=== PATIENT | female | born 1945 | race Caucasian/White ===

== ENCOUNTER 2023-10-11 09:55 | Day surgery (SDC) | payer MEDICARE, OTHER ==
[2023-09-23 15:01] VITALS: BP 149/63
[~2023-10-11] VITALS: Ht 165.1 cm; Wt 87.7 kg
--- NOTE | ~2023-10-11 | OR ---
[facility] [address] [place], [place] [address] Draft DATE OF OPERATION: 10/11/2023 SURGEON: Meagan Pardo MD PREOPERATIVE DIAGNOSIS: Postmenopausal bleeding, cervical stenosis. POSTOPERATIVE DIAGNOSIS: Postmenopausal bleeding, cervical stenosis. PROCEDURE: Hysteroscopy, dilation and curettage. ANESTHESIA: General LMA. ESTIMATED BLOOD LOSS: Minimal. DRAINS: None. 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 Ultrasound showed some fluid in the cavity as well as some thickening. The endometrial biopsy could not be performed in the office secondary to cervical stenosis. At the time of surgery, there was mucus identified on dilating the cervix. The cavity itself appeared pretty atrophic with minimal tissue. DESCRIPTION OF PROCEDURE: The patient was prepped and draped in the dorsal lithotomy position. A weighted speculum was placed. The anterior lip of the cervix was visualized and grasped with a single-tooth tenaculum. The small dilators were used and the cervix was then dilated with a moderate amount of mucus seen. The endocervical canal was then dilated to a #8 dilator. The MyoSure device was placed and the cavity evaluated. It did appear to be atrophic. The MyoSure device was removed and a D and C was done using a small curette with a small amount of tissue found. The tenaculum and speculum removed. There was no evidence of any ongoing bleeding. The patient tolerated well and was taken to the recovery room in good condition. Sponge and needle counts were correct. PATIENT NAME: GALINA BASILIO OPERATIVE REPORT DATE OF : 49 REPORT #: [id number] PHYSICIAN: MEAGAN PARDO MD PCP: OTHER PCP REPORT IS CONFIDENTIAL AND NOT TO BE RELEASED WITHOUT AUTHORIZATION [address] [address] Draft MD CECILE Salas/RADHA /[id number] Copies: ~ PATIENT NAME: GALINA BASILIO OPERATIVE REPORT DATE OF : 49 REPORT #: [id number] PHYSICIAN: MEAGAN PARDO MD PCP: OTHER PCP REPORT IS CONFIDENTIAL AND NOT TO BE RELEASED WITHOUT AUTHORIZATION
[~2023-10-11 09:55] MED LIST: ADVIL200 MG; ALTOPREV40 MG PO; BAYER CHEWABLE81 MG PO; BRIMONIDINE TART5 ML; CALCIUM 250+D1 EACH PO; CLOBETASOL PROP15 G1 TOP; FAMOTIDINE20 MG PO; GARLIC1 EAC1 PO; GLUCOPHAGE500 MG PO; IRON 100 PLUS1 EACH PO; ISOSORBIDE DINI30 MG PO; LYSINE1000 MG PO; MELALEUCA10 ML PO; MYRBETRIQ25 MG PO; NITROFURANTOIN50 MG PO; NITROGLYCERIN0.4 MG SL; PANTOPRAZOLE SO40 MG PO; PERPHENAZINE2 MG PO; PRINIVIL10 MG PO; RENA-VITE RX T1 EACH; SERTRALINE HCL100 MG PO; TYLENOL EXTRA500 M2 PO; VITAMIN E OIL-V52 M2 TOP
[2023-10-11 10:12] VITALS: BP 143/55
[2023-10-11] MEDS ORDERED: REPATHA PU420 MG/3.5 SUB-Q (10:24)
--- NOTE | 2023-10-11 13:08 | NUR ---
10/11/23 [id number] Shantelle Reynolds 1247- PT ARRIVES TO PACU, SEMI BACK POSITION. LR INFUSING TO RFA IV, O2 AT 8L PER MASK. ALL MONITORS IN PLACE. URBAN PAD WITH NO DRAINAGE IN PLACE. ABD SOFT, NON DISTENDED. PT NON REACTIVE TO STIMULUS AT THIS TIME. 1251- PT REACTIVE TO VERABL STIMULI. OPENS EYES AND LOOKING AROUND. PT REORIENTED TO TIME AND PLACE AND PROCEDURE COMPLETE, PT STATES "YOU ARE JOKING". DENIES PAIN AND NAUSEA. O2 REMAINS IN PLACE AT THIS TIME. 1253- SATS REMAIN 100% ON 8L PER MASK, MOVED TO ROOM AIR AT THIS TIME. WILL CONTINUE TO MONITOR.
--- NOTE | 2023-10-11 13:39 | NUR ---
1320 PATIENT ARRIVED FROM PACU VIA BED. REPORT TAKEN FROM SHIRA MOTTA RN. PT VITALS TAKEN. PT REPORTS 0/10 PAIN. PT REPORTS NO NAUSEA. PATIENT IS AROUSABLE BY VOICE BUT IS DROWSY. IV ASSESSED. 1330 WARM BLANKETS GIVEN. SNACKS AT BEDSIDE, CALL LIGHT WITHIN REACH, WARM BLANKETS AND WARMER RUNNING.
[2023-10-11] MEDS ORDERED: MOTRIN IB200 MG PO (13:58)
[2023-10-11] MEDS ORDERED: TYLENOL325 MG PO (13:59)
[2023-10-11 14:30] VITALS: BP 128/48
--- NOTE | 2023-10-11 14:36 | NUR ---
1430 PT SITTING UP IN BED. PT HAS EATEN SNACKS AND IS DRINKING WATER. TOLERATING WELL. DISCUSSED DEEP BREATHING. SALINE LOCKED IV. PT HAS NO FURTHER REQUEST AT THIS TIME. PERSONAL ITEMS WITHIN REACH, CALL LIGHT WITHIN REACH.
--- NOTE | 2023-10-11 15:05 | NUR ---
THIS RN STANDBY ASSIST PT TO RESTROOM. PT REPORTS NO NAUSEA/DIZZINESS W/AMBULATION AND GAIT IS STEADY. PT URINE VOID 300 ML OF YELLOW/PINK URINE. PT CHANGES URBAN PAD THAT HAS ONLY SCANT AMOUNT OF SS DRAINAGE. PT BACK TO ROOM AND GETTING DRESSED AT THIS TIME, IN ROOM. CALL LIGHT WITHIN REACH, NO FURTHER NEEDS AT THIS TIME.
[2023-10-11 15:19] VITALS: BP 169/70
--- NOTE | 2023-10-11 15:37 | NUR ---
1520 PT WAS DRESSED AND READY TO BE DISCHARGED. TOOK VITALS, WENT OVER DISCHARGE PAPERWORK WITH AT BEDSIDE. PT HAD NO FURTHER QUESTIONS. 1525 DISCONTINUED IV. 1530 PT WAS TAKEN OUT TO CAR TO VIA WHEELCHAIR.
--- NOTE | 2023-10-15 15:10 | PATH ---
[facility] [address] [place], [place] [address] Signed THIS IS AN ADDENDUM REPORT SPECIMEN(S): A ENDOMETRIAL CURETTINGS SPECIMEN SOURCE: A. ENDOMETRIAL CURETTINGS CLINICAL HISTORY: Postmenopausal bleeding. 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 COMMENT: Microsatellite instability testing by immunohistochemistry is pending and will be reported by addendum. As part of [facility]' Quality Improvement Program, this case was reviewed by another member of our pathology staff (Dr. Meyers). Diagnostic notification to the office of Dr. Pardo is initiated by Dr. Cabral and will be recorded separately. JVR:julia MICROSCOPIC EXAMINATION: Histologic sections of all submitted blocks are examined by light microscopy. These findings, together with the gross examination, support the pathologic diagnosis. GROSS DESCRIPTION: The specimen, labeled and designated "Paul, endometrial curettings," is received in formalin and consists of multiple fragments of moss to red-brown soft tissue (2.4 x 0.9 x 0.3 cm in aggregate). The specimen is submitted entirely in cassette (A1). VB (under the direct supervision of a pathologist) The Gross Description was prepared using a voice recognition system. The report was reviewed for accuracy; however, sound-alike word errors, addition and/or deletions may occur. If there is any question about this report, please contact Client Services. PERFORMING LABORATORY: PATIENT NAME: GALINA BASILIO PATHOLOGY DATE OF : 49 REPORT #: [id number] PHYSICIAN: FREDERIC FAITH PCP: OTHER PCP REPORT IS CONFIDENTIAL AND NOT TO BE RELEASED WITHOUT AUTHORIZATION [facility] [address] [place], [place] [address] Signed Technical component was performed by [facility], [address] [place] [id number] (CLIA# [id number]). Professional interpretation was performed by [facility], [address] [place] [phone] (CLIA#: [id number]). COMMENT: Tumor cells show no loss of nuclear expression of MMR proteins. This correlates with a low probability of microsatellite instability. However, if there is a high clinical suspicion for Siegel syndrome (hereditary non-polyposis colorectal carcinoma syndrome) in this patient, additional testing should be considered. Please contact [facility] if such testing is indicated. DS:vanessa ADDITIONAL NOTES: Immunohistochemical and/or in situ hybridization studies were performed on this case with the appropriate positive controls that react as expected. This test was developed and its performance characteristics determined by [facility]. It has not been cleared or approved by the U.S. Food and Drug Administration. The FDA has determined that such clearance or approval is not necessary. This test is used for clinical purposes. It should not be regarded as investigational or for research. [facility] is certified under the Clinical Laboratory Improvement Amendments of 1988 (CLIA) as qualified to perform high complexity clinical laboratory testing. PERFORMING LABORATORY: The technical component was performed by [facility], [address] [place] [phone] (CLIA#: [id number]). Professional interpretation was performed by [facility], [address] [place] [address], [place] [id number] (CLIA#: [id number]). REASON FOR ADDENDUM: To report results of additional testing. ADDENDUM PATHOLOGIC DIAGNOSIS: Endometrium, microsatellite instability testing by IHC: - MLH1: Intact nuclear expression. - MSH2: Intact nuclear expression. - MSH6: Intact nuclear expression. - PMS2: Intact nuclear expression. PATIENT NAME: GALINA BASILIO PATHOLOGY DATE OF : 49 REPORT #: [id number] PHYSICIAN: FREDERIC PATHOLOGY PCP: OTHER PCP REPORT IS CONFIDENTIAL AND NOT TO BE RELEASED WITHOUT AUTHORIZATION [facility] [address] [place], [place] [address] Signed INTERPRETATION: Normal pattern. ADDENDUM MICROSCOPIC EXAMINATION: A panel of four antibodies is selected which will detect 95% of microsatellite unstable carcinomas. Testing is performed at the request of Duarte Cabral MD. Block: A1. Recut HE slide is prepared from the block. The presence of neoplastic glands and non-neoplastic internal control glands or stroma is confirmed. Internal control cells for MLH1, MSH2, PMS2 and MSH6 are Positive. Neoplastic gland cells show the following: - MLH1: Positive. - MSH2: Positive. - MSH6: Positive. - PMS2: Positive. Diagnostician: Duarte Cabral MD Pathologist Diagnostician: Ayush Meyers MD Pathologist Electronically Signed 10/15/2023 Copies: ~ PATIENT NAME: GALINA BASILIO PATHOLOGY DATE OF : 49 REPORT #: [id number] PHYSICIAN: FREDERIC PATHOLOGY PCP: OTHER PCP REPORT IS CONFIDENTIAL AND NOT TO BE RELEASED WITHOUT AUTHORIZATION
== END 2023-10-11 15:29 | disposition home or self-care (01) ==
LOC: DS 09:55 → OPS 09:55 → DS 12:00 → OPS 12:00
PROVIDERS: ATTEND Obstetrics & Gynecology
PROC: 0UDB8ZZ Extraction of Endometrium, Via Natural or Artificial Opening Endoscopic (ICD-10-PCS; principal; 2023-10-11 12:00)
DX: C54.1 Malignant neoplasm of endometrium (principal); N88.2 Stricture and stenosis of cervix uteri; N95.0 Postmenopausal bleeding; E11.9 Type 2 diabetes mellitus without complications; I10 Essential (primary) hypertension; E78.5 Hyperlipidemia, unspecified; I25.2 Old myocardial infarction; K21.9 Gastro-esophageal reflux disease without esophagitis; Z95.1 Presence of aortocoronary bypass graft; Z79.899 Other long term (current) drug therapy; Z88.5 Allergy status to narcotic agent; Z88.8 Allergy status to other drugs, medicaments and biological substances; Z88.0 Allergy status to penicillin
CPT/HCPCS: 00952; J0131; J0690; J1100; J2001; J2405; J2704; J3010; J7121